=== PATIENT | female | born 1975 | race Caucasian/White ===

== ENCOUNTER 2018-11-09 15:11 | Outpatient (CLI) | payer OTHER | END 2018-11-09 15:12 | disposition home or self-care (01) | LOC: CTENTCT 15:11 | PROVIDERS: ATTEND Otolaryngology Plastic Surgery within the Head & Neck | DX: J32.9 Chronic sinusitis, unspecified (principal) | CPT/HCPCS: 70486; 87070; 87077; 87205 ==

== ENCOUNTER 2019-02-23 08:18 | Day surgery (SDC) | payer OTHER ==
[2019-02-22 14:36] VITALS: BMI 30.4
[2019-02-23] MEDS ORDERED: Fentanyl 250 MCG/5 ML VIAL ONE (08:39)
[2019-02-23] MEDS ORDERED: Lidocaine 1% w/Epinephrine 1:100K 20 ML VIAL ONE (09:06)
[2019-02-23] MEDS ORDERED: Oxymetazoline HCl 0.05% ( 15 ML ) ONE (09:06)
[2019-02-23] MEDS ORDERED: Scopolamine 1.5 mg/72 hour Patch ONE (09:19)
[2019-02-23] MEDS ORDERED: Midazolam HCl 2 mg/2 ml Vial ONE (09:52)
[2019-02-23] MEDS ORDERED: Propofol 500 MG/50 ML VIAL ONE (09:52)
[2019-02-23] MEDS ORDERED: Bacitracin Zinc Ointment 30 gm TUBE ONE (11:15)
[2019-02-23] MEDS ORDERED: hydrALAZINE 20 MG/ML VIAL ONE (11:32)
[2019-02-23] MEDS ORDERED: Fentanyl 100 MCG/2 ML VIAL ONE ×2 (11:46→12:48)
[2019-02-23] MEDS ORDERED: HYDROcodone/Acetaminophen 5/325 mg Tablet ONE (14:42)
[2019-02-23] MEDS ORDERED: diphenhydrAMINE 50 MG/ML VIAL ONE (14:49)
[2019-02-23] MEDS ORDERED: Lidocaine 1% PF 5 ML VIAL ONE (19:09)
[2019-02-23] MEDS ORDERED: Glycopyrrolate 0.2 MG/ML 5 ML SYRINGE ONE (19:09)
[2019-02-23] MEDS ORDERED: Labetalol HCl 100 MG/20 ML VIAL ONE (19:09)
[2019-02-23] MEDS ORDERED: Dexamethasone 20 MG/5 ML VIAL ONE (19:09)
[2019-02-23] MEDS ORDERED: Rocuronium Bromide 10 MG/ML (10ML VIAL) ONE (19:09)
[2019-02-23] MEDS ORDERED: PROPOFOL 200 MG/20 ML VIAL ONE (19:09)
[2019-02-23] MEDS ORDERED: Ondansetron PF 4 MG/2 ML Vial ONE (19:09)
--- NOTE | 2019-02-24 11:04 | OP ---
DATE OF PROCEDURE: 02/23/2019 PREOPERATIVE DIAGNOSES: 1. Chronic rhinosinusitis. 2. Allergic fungal sinusitis. 3. Nasal polyposis. 4. Nasal adhesions. PROCEDURES PERFORMED: 1. Bilateral endoscopic sinus surgery, frontal sinusotomies with removal of tissue. 2. Left endoscopic sinus surgery, total ethmoidectomy with removal of tissue. 3. Left endoscopic sinus surgery, sphenoidotomies with removal of tissue. 4. Bilateral inferior turbinate submucosal resection. 5. [employer] image-guided cranial base navigational surgery. ESTIMATED BLOOD LOSS: 50 mL. COMPLICATIONS: None. ANESTHESIA: GETA. DESCRIPTION OF PROCEDURE: The patient was taken to the operating room, placed supine on the table. General endotracheal anesthesia was obtained by the anesthesia staff. Tube was secured in the left lower lip. The [employer] image-guided system was then set up and calibrated, it was noted to be within 1 mm of accuracy. Following this, Afrin pledgets removed from the nasal cavity and 1% lidocaine was injected into the inferior turbinates and remnant of middle turbinates bilaterally. On the left side, there was an excessive amount of nasal adhesions and scarring, which had nearly obliterated the anterior and posterior ethmoidal cells. These were injected 1% lidocaine with 1:100,000 epinephrine. First, the 40-degree curved navigational microdebrider blade was used along with 45-degree scope to puncture the adhesions on the left side and address the frontal sinus ostia bilaterally. Using navigational surgery, remnant bone and scar tissue were removed using the 90-degree Blakesley blade and the microdebrider blade. Following this, the 0-degree endoscope and the 0-degree navigational microdebrider blade were used to navigate through the remnant ethmoidal cells and scar bands working from anteriorly to posteriorly. Posteriorly, anterior wall of the sphenoid sinus had bone regrowth and was very thickened, osteitic bone was present. This was punctured using the microdebrider blade and was then widened medially and inferiorly with the microdebrider. Copious amounts of fungal debris were removed from the posterior ethmoidal cells as well as the entire left sphenoid sinus. This area was then irrigated with saline. The previous left maxillary ostia and right maxillary ostia were widely patent with gelatinous debris in the left floor of the maxillary sinus, which was suctioned and cultured. The fungal debris from the left ethmoidal and sphenoid sinus was cultured as well. Following this, inferior turbinates were punctured on the anterior inferior aspect and submucosal microdebridement and resection was performed of the anterior inferior portions of the inferior turbinates bilaterally. Following this, the PROPEL steroid implanted stent was then inserted into the frontal sinus and frontal recess bilaterally. Following this, the straight steroid impregnated nasal stent was implanted into the left sphenoid sinus ostia. Following this, NasoPore was placed into the middle meatus bilaterally. The patient tolerated the procedure well. Job ID: [id number]
[2019-02-28 10:10] LABS: Fungus Stain Final report (.)
== END 2019-02-24 16:36 | disposition home or self-care (01) ==
LOC: SDC 08:18
PROVIDERS: ATTEND Otolaryngology Plastic Surgery within the Head & Neck
PROC: 09TV8ZZ Resection of Left Ethmoid Sinus, Via Natural or Artificial Opening Endoscopic (ICD-10-PCS; principal; 2019-02-23)
PROC: 09TU8ZZ Resection of Right Ethmoid Sinus, Via Natural or Artificial Opening Endoscopic (ICD-10-PCS; principal; 2019-02-23)
PROC: 09BS8ZZ Excision of Right Frontal Sinus, Via Natural or Artificial Opening Endoscopic (ICD-10-PCS; principal; 2019-02-23)
PROC: 09BX8ZZ Excision of Left Sphenoid Sinus, Via Natural or Artificial Opening Endoscopic (ICD-10-PCS; principal; 2019-02-23)
PROC: 09BT8ZZ Excision of Left Frontal Sinus, Via Natural or Artificial Opening Endoscopic (ICD-10-PCS; principal; 2019-02-23)
PROC: 8E09XBZ Computer Assisted Procedure of Head and Neck Region (ICD-10-PCS; principal; 2019-02-23)
PROC: 09TL0ZZ Resection of Nasal Turbinate, Open Approach (ICD-10-PCS; principal; 2019-02-23)
PROC: 09BW8ZZ Excision of Right Sphenoid Sinus, Via Natural or Artificial Opening Endoscopic (ICD-10-PCS; principal; 2019-02-23)
DX: J32.9 Chronic sinusitis, unspecified (principal); J33.9 Nasal polyp, unspecified; J34.89 Other specified disorders of nose and nasal sinuses; F41.9 Anxiety disorder, unspecified; G47.00 Insomnia, unspecified; J45.909 Unspecified asthma, uncomplicated; Z79.899 Other long term (current) drug therapy; Z88.0 Allergy status to penicillin; Z88.2 Allergy status to sulfonamides; Z88.6 Allergy status to analgesic agent; Z91.041 Radiographic dye allergy status
CPT/HCPCS: 85014; 87070; 87077; 87102; 87186; 87205; 87206; J0131; J0360; J1100; J1200; J2001; J2250; J2405; J2704; J3010